=== PATIENT | male | born 1990 | race Two or more races ===

== ENCOUNTER 2017-08-08 21:38 | Emergency (ER) | payer BC, OTHER ==
[~2017-08-08] VITALS: Ht 170.2 cm; Wt 70.0 kg
[2017-08-08 21:45] VITALS: Ht 170.2 cm; Wt 70.0 kg
--- NOTE | 2017-08-08 22:15 | ERD ---
ER Documentation Chief Complaint Chief Complaint Pt was moving a pt when he hurt his back HPI The patient is a 26-year-old male, presenting to the ER because he complains of right low back pain after he moved his patient about 7:45 PM. 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 He does not have chronic low back pain, the pain is 3/ 10, worse with movement. He denies fecal/urinary incontinence, denies fever, chills, neck pain, chest pain, dyspnea, abdominal pain, vomiting, dysuria, diarrhea. He does not smoke, drinks socially Past medical/surgical history: None ROS All systems reviewed and are negative except as per history of present illness. Medications Home Meds Active Scripts Ibuprofen* (Motrin*) 600 Mg Tab, 600 MG PO Q6, #20 TAB Prov:CHASE RUSHING MD 08/08/17 Allergies Allergies: Coded Allergies: No Known Allergy (Unverified , 08/08/17) PMhx/Soc Medical and Surgical Hx: pt denies Medical Hx, pt denies Surgical Hx Hx Alcohol Use: No Hx Substance Use: No Hx Tobacco Use: No Smoking Status: Never smoker Physical Exam Vitals Vital Signs Date Time Temp Pulse Resp B/P Pulse Ox O2 Delivery O2 Flow Rate FiO2 08/08/17 21:45 98.0 79 16 132/76 98 Physical Exam Const: No acute distress. Head: Atraumatic. Eyes: Normal Conjunctiva. ENT: Normal External Ears, Nose and Mouth. Neck: Full range of motion. No meningismus. Resp: Clear to auscultation bilaterally. Cardio: Regular rate and rhythm. Abd: Soft, non distended, normal bowel sounds, non tender. Skin: No petechiae or rashes. Back: No midline or flank tenderness.Mild right lumbar tenderness, no spinal tenderness, no erythema Ext: No cyanosis, or edema. Neur: Awake and alert. No focal deficit Psych: Normal Mood and Affect. Results 24 hrs Current Medications Medications (Trade) Dose Ordered Sig/Reed Route PRN Reason Start Time Stop Time Status Last Admin Dose Admin Ketorolac Tromethamine (Toradol) 60 mg ONCE STAT IM 08/08/17 22:19 08/08/17 22:21 DC Procedures/MDM MEDICAL MAKING DECISION: The patient is a 26-year-old male, presenting with acute back pain, most likely acute musculoskeletal strain. He was treated with Toradol 60 mg IM for pain with good response. The differential diagnoses considered include but are not limited to caudal equina syndrome, spinal abscess, DJD, diskitis, lumbar radiculopathy. Departure Diagnosis: Primary Impression: Back pain Condition: Good Comments He was discharged with Motrin The patient's blood pressure was elevated (>120/80) but appears stable without evidence of hypertension emergency or urgency. The patient was counseled about the risks of hypertension and urged to pursue outpatient monitoring and therapy within a week with their primary care physician. I discussed the findings with the patient. I advised the patient to follow-up with the primary physician in about 1-2 days, sooner if needed and return if any concern. Disclaimer: Inadvertent spelling and grammatical errors are likely due to EHR/ dictation software use and do not reflect on the overall quality of patient care. Also, please note that the electronic time recorded on this note does not necessarily reflect the actual time of the patient encounter. CHASE RUSHING MD Aug 08, 2017 22:15
[2017-08-08] MEDS ORDERED: KETOROLAC 60 MG INJ IM STA (22:19)
[2017-08-08] MEDS ORDERED: IBUP-1542 PO (22:21)
[2017-08-08 22:43] VITALS: BP 122/76; PULSE 64; RESP 16; TEMP 98
== END 2017-08-08 22:44 | disposition home or self-care (01) ==
LOC: E/R 21:38
DX: M54.5 Low back pain (principal)
CPT/HCPCS: 96372; 99284; J1885

== ENCOUNTER 2019-05-17 15:57 | Emergency (ER) | payer BC, OTHER ==
[~2019-05-17] VITALS: Ht 170.2 cm; Wt 77.7 kg
[~2019-05-17 15:57] MED LIST: IBUP-1542 PO
[2019-05-17 15:59] VITALS: BP 135/81; PULSE 77; RESP 18; Ht 170.2 cm; Wt 77.7 kg
[2019-05-17] MEDS ORDERED: SOD CHLORIDE 0.9% 1,000 ML IV STA (16:39)
[2019-05-17] MEDS ORDERED: morphine 2 MG INJ IV STA (16:39)
[2019-05-17] MEDS ORDERED: ONDANSETRON 4 MG INJ IV STA (16:39)
[2019-05-18] MEDS ORDERED: SOD CHLORIDE 0.9% 100 ML ONE (21:49)
[2019-05-18] MEDS ORDERED: IOHEXOL 300MG/ML 150 ML BTL ONE (21:49)
== END 2019-05-17 18:20 | disposition home or self-care (01) ==
LOC: FTE 15:57
DX: R10.12 Left upper quadrant pain (principal); F17.210 Nicotine dependence, cigarettes, uncomplicated
CPT/HCPCS: 36415; 71045; 80053; 81003; 83690; 85025; 96361; 96374; 96375; 99284; J2270; J2405; J7030; Q9967

== ENCOUNTER 2019-05-18 21:37 | Emergency (ER) | payer BC ==
[~2019-05-18] VITALS: Ht 170.2 cm; Wt 77.7 kg
[2019-05-18 21:40] VITALS: Ht 170.2 cm; Wt 77.7 kg
[2019-05-18] MEDS ORDERED: IOHEXOL 300MG/ML 150 ML BTL ONE (22:03)
[2019-05-18] MEDS ORDERED: SOD CHLORIDE 0.9% 100 ML ONE (22:03)
[2019-05-18 22:40] VITALS: BP 132/71; PULSE 85; RESP 18
== END 2019-05-18 23:17 | disposition home or self-care (01) ==
LOC: FTE 21:37
DX: R10.11 Right upper quadrant pain (principal); F17.210 Nicotine dependence, cigarettes, uncomplicated
CPT/HCPCS: 74177; 99284; Q9967